=== PATIENT | female | born 1960 | race Caucasian/White ===

== ENCOUNTER → 2016-08-11 04:42 | Emergency (ER) | payer BC ==
--- NOTE | 2016-08-11 06:05 | ED ---
Muna Cool SooYoung, scribed for Quinton Solorzano MD on 08/11/16 at 0511 . Syncope/Near Syncope - HPI Summary HPI Summary: A 56 y/o F GENEVA presents to ED after syncopal episode onset [employer]. Pt states she was feeling very hot, and went to the bathroom to get a cold washcloth. She sat down on the toilet and woke up on the floor. According to her , he heard her fall to the floor, by the time he got to the bathroom she had regained consciousness, and she appeared pale, cold, and with slurred speech. He notes that she improved significantly in the time it took for the ambulance to arrive. Pt has not had similar syncopal episodes in the past. She has not felt well for the past few days including sx of sore throat, ear ache, cough, congestion, subjective fever. PCP is Dr. Messer. - History Of Current Complaint Chief Complaint: EDSyncope Hx Obtained From: Patient, Family/Ham Doctor Onset/Duration: Resolved Timing: Minutes - under two minutes Context: Unwitnessed, Loss Of Consciousness Activity At Onset: At Rest Alleviating Factor(s): Spontaneous Resolution Associated Signs And Symptoms: Other - pos: slurred speech, pale, cool to touch - Allergies/Home Medications Allergies/Adverse Reactions: Allergies Allergy/AdvReac Type Severity Reaction Status Date / Time No Known Allergies Allergy Verified 01/19/12 15:17 PMH/Surg Hx/FS Hx/Imm Hx Previously Healthy: Yes Musculoskeletal History: Denies: Hx Osteoporosis - Cancer History Hx Chemotherapy: No Hx Radiation Therapy: No - Surgical History Surgery Procedure, Year, and Place: fusion L4 5 1990 Infectious Disease History: No Infectious Disease History: Denies: Traveled Outside the [place] in Last 30 Days - Family History Known Family History: Positive: Other - BREAST CA - Social History Occupation: Employed Full-time Lives: With Family Hx Substance Use: No Substance Use Type: Reports: None Review of Systems Positive: Chills Skin: Other - pos: pale Positive: Syncope, Slurred Speech All Other Systems Reviewed And Are Negative: Yes Physical Exam Triage Information Reviewed: Yes Vital Signs On Initial Exam: Initial Vitals Temp Pulse Resp BP Pulse Ox 98.7 F 78 16 102/53 98 08/11/16 04:45 08/11/16 04:45 08/11/16 04:45 08/11/16 04:45 08/11/16 04:45 Vital Signs Reviewed: Yes Appearance: Positive: Well-Appearing, No Pain Distress Skin: Positive: Warm Head/Face: Positive: Normal Head/Face Inspection Eyes: Positive: LEIGHANN ENT: Positive: Hearing grossly normal, Pharyngeal erythema. Negative: Tonsillar exudate Neck: Positive: Supple Respiratory/Lung Sounds: Positive: Clear to Auscultation, Breath Sounds Present Cardiovascular: Positive: RRR Abdomen Description: Positive: Nontender, No Organomegaly, Soft Bowel Sounds: Positive: Present Musculoskeletal: Positive: Strength/ROM Intact Neurological: Positive: Sensory/Motor Intact, Alert, Oriented to Person Place, Time, Normal Gait Diagnostics - Vital Signs Vital Signs Temp Pulse Resp BP Pulse Ox 08/11/16 05:00 82 19 102/53 98 08/11/16 04:57 79 141/89 98 08/11/16 04:52 82 97 08/11/16 04:45 98.7 F 75 16 102/53 98 - Laboratory Result Diagrams: 08/11/16 05:45 08/11/16 05:45 Lab Statement: Any lab studies that have been ordered have been reviewed, and results considered in the medical decision making process. - Radiology CXR Xray Interpretation: No Acute Changes Radiology Interpretation Completed By: ED Physician - CT BRAIN CT CT Interpretation: No Acute Changes - See [facility] for full report CT Interpretation Completed By: Radiologist - EKG 1 Cardiac Rate: NL EKG Rhythm: Sinus Rhythm Re-Evaluation - Re-Evaluation First Eval Change: Improved - pt feels well Course/Dx Course Of Treatment: Pt is a 56 y/o F BIBA presenting after syncopal episode onset approx 0330 falling from the toilet to the floor. According to her , he heard her fall to the floor, by the time he got to the bathroom she had regained consciousness, and she appeared pale, cold, and with slurred speech. He notes that she improved significantly in the time it took for the ambulance to arrive. Pt has felt unwell for the past few days with sore throat, ear ache, cough, congestion, subjective fever. Brain CT shows no acute findings. Trop was negative. EKG is nml. CXR is nml. - Diagnoses Provider Diagnoses: Syncope Discharge - Discharge Plan Condition: Improved Disposition: HOME Patient Education Materials: Syncope (ED) Referrals: Kirsty Sanches MD [Primary Care Provider] - Additional Instructions: Please return to the ED with any new or worsening symptoms. The documentation as recorded by the Muna gaxiola SooYoung accurately reflects the service I personally performed and the decisions made by me, Quinton Solorzano MD.
[2016-08-11 06:08] LABS: Hematocrit 40 % (35-47); Mean Corpuscular HGB Conc 33 g/dl (31-36); Mean Corpuscular Hemoglobin 31 pg (27-31); Mean Corpuscular Volume 94 fL (80-97); Mean Platelet Volume 8 um3 (7.4-10.4); Red Blood Count 4.21 10^6/ul (4.0-5.4); Red Cell Distribution Width 14 % (10.5-15); White Blood Count 14.1 10^3/ul (3.5-10.8)
[2016-08-11 06:09] LABS: Add Diff/Slide Review? Slide Review Added; Comments Flag Yes
[2016-08-11 06:17] LABS: Albumin 3.6 g/dL (3.2-5.2); BUN/Creatinine Ratio 20.3 (8-20); Calcium 9.2 mg/dL (8.6-10.3); EGFR African American 103.7 (>60); EGFR Non-African American 80.6 (>60); Globulin 3.5 g/dL (2-4); Magnesium 1.6 mg/dL (1.9-2.7); Potassium 3.8 mmol/L (3.5-5.0); Total Bilirubin 0.2 mg/dL (0.2-1.0); Total Protein 7.1 g/dL (6.4-8.9)
[2016-08-11 06:36] LABS: TSH (Thyroid Stimulating Horm) 3.04 mcIU/mL (0.34-5.60)
--- NOTE | 2016-08-11 08:02 | RAD ---
HISTORY: Syncope COMPARISONS: None TECHNIQUE: Multiple contiguous axial CT scans were obtained of the head without intravenous contrast. FINDINGS: HEMORRHAGE/INFARCT: There is no hemorrhage or acute infarct. MASSES/SHIFT: There is no mass or shift. EXTRA-AXIAL SPACES: There are no extra-axial fluid collections. SULCI AND VENTRICLES: The sulci and ventricles are normal in size and position for the patient's stated age. CEREBRUM: There are no focal parenchymal abnormalities. BRAINSTEM: There are no focal parenchymal abnormalities. CEREBELLUM: There are no focal parenchymal abnormalities. VESSELS: The vessels are grossly normal. PARANASAL SINUSES: The paranasal sinuses are clear. ORBITS: The orbits are unremarkable. BONES AND SOFT TISSUE: No bone or soft tissue abnormalities are noted. OTHER: None IMPRESSION: NO ACUTE INTRACRANIAL PATHOLOGY.
--- NOTE | 2016-08-11 08:02 | RAD ---
HISTORY: Syncope COMPARISONS: None VIEWS: 2: Frontal dual-energy and lateral views of the chest. FINDINGS: CARDIOMEDIASTINAL SILHOUETTE: The cardiomediastinal silhouette is normal. OSWALDO: The oswaldo are normal. PLEURA: The costophrenic angles are sharp. No pleural abnormalities are noted. LUNG PARENCHYMA: The lungs are clear. ABDOMEN: The upper abdomen is clear. There is no subphrenic gas. BONES AND SOFT TISSUES: No bone or soft tissue abnormalities are noted. OTHER: None. IMPRESSION: NO ACTIVE CARDIOPULMONARY DISEASE.
[2016-08-11 08:14] VITALS: BP 107/58
[2016-08-11 08:32] LABS: Urine Bilirubin Negative (Negative); Urine Glucose Negative (Negative); Urine Nitrite Negative (Negative)
== END | disposition home or self-care (01) ==
LOC: ED 04:42
DX: R55 Syncope and collapse (principal)
CPT/HCPCS: 36415; 70450; 71020; 80053; 81003; 83605; 83735; 84443; 84484; 85025; 85379; 87651; 93005; 99283